=== PATIENT | male | born 1995 | race Caucasian/White ===

== ENCOUNTER 2025-08-22 11:16 | Emergency (ER) | payer OTHER, SELFPAY ==
[2025-08-22 11:23] VITALS: BP 143/88; PULSE 88; RESP 17; TEMP 36.2; O2SAT 98; BMI 33.0
[2025-08-22 13:30] VITALS: BP 134/74; PULSE 74; RESP 20; O2SAT 98
--- NOTE | 2025-08-22 13:35 | ED.URI ---
HPI - URI/Sore Throat General Chief Complaint: Upper Respiratory Symptoms Stated Complaint: Numbness in neck/ringing ears/headache Time Seen by Provider: 08/22/25 12:30 Source: patient Mode of arrival: Ambulatory History of Present Illness HPI Narrative: Patient is a 30-year-old male presenting to day with ears clogged ringing in his ear neck pain and some numbness down his left hand. He reports that he has been sick for about a month or so he has had 2 [id number] infections he has had pretty significant nasal congestion. No fever no chills. He recently traveled back from [place] and does not feel like his ears have quite pop. He feels like he has nasal congestion that has gotten much better. No significant shortness of breath or chest pain. He occasionally has palpitations but that is not new he does not feel like the palpitations have gotten any worse. No abdominal pain nausea or vomiting. Related Data Allergies Allergy/AdvReac Type Severity Reaction Status Date / Time No Known Drug Allergies Allergy Verified 08/22/25 11:23 Patient History Social History Smoking Status: Current every day smoker Smoking Status: Current every day smoker tobacco type: cigarettes Exam Initial Vital Signs Initial Vital Signs: Vital Signs Temperature 97.1 F L 08/22/25 11:23 Pulse Rate 88 08/22/25 11:23 Respiratory Rate 17 08/22/25 11:23 Blood Pressure 143/88 H 08/22/25 11:23 Pulse Oximetry 98 08/22/25 11:23 Oxygen Delivery Method Room Air 08/22/25 11:23 GENERAL: Well-appearing, well-nourished and in no acute distress. HEENT: Head atraumatic,EOMI, no vertebral tenderness no step-off mild paraspinal muscle tenderness EARS: Tympanic membranes visualized, no erythema or bulging, no hemotympanum CARDIOVASCULAR: Regular rate and rhythm without murmurs, rubs or gallops. RESPIRATORY: Breath sounds equal bilaterally, no wheezes rales or rhonchi. ABDOMEN: Soft, nontender. Normoactive bowel sounds all 4 quadrants. No guarding or rebound. EXTREMITIES: Normal range of motion, no clubbing or edema. 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 Cranial nerves II through XII grossly intact. SKIN: Warm, dry, no laceration, no petechiae, no rashes or lesions. Course Vital Signs Vital signs: Vital Signs - 8 hr 08/22/25 11:23 08/22/25 13:30 Temperature 97.1 F L Pulse Rate 88 74 Respiratory Rate 17 20 Blood Pressure 143/88 H 134/74 Pulse Oximetry 98 98 Oxygen Delivery Method Room Air Room Air MDM - URI/Sore Throat MDM Narrative Medical decision making narrative: Patient is a healthy 30-year-old male presenting today with ringing ears. There is no evidence of otitis media vitals are stable heart rate sounds regular breath sounds are clear. No need for any further workup. Recommend supportive care. His strength is equal he has no injury and it is not he has full range of motion no meningeal signs no fever. Discharge Plan Departure Patient Disposition: Home Clinical Impression: Acute dysfunction of both eustachian tubes Instructions: DI for Eustachian Tube Dysfunction-Adult Activity Restrictions/Additional Instructions: *You have been diagnosed with Eustachian tube dysfunction *What to do: At this time try nasal saline drops Tylenol Motrin as needed for antibiotics. I hope that you start feeling better soon if things are getting worsened by all means return to the emergency department *Continue to take medications as directed *Follow up with your primary care provider in 2-3 days or call [phone] *Return to ER if you should have increasing weakness numbness tingling ear pain fever or any new, worsening or concerning symptoms Referrals: ProviderOscar [Primary Care Provider, Family Practice] Stand Alone Forms: Patient Portal/API
== END 2025-08-22 14:14 | disposition home or self-care (01) ==
PROVIDERS: Emergency Provider Emergency Medicine
DX: H69.93 Unspecified Eustachian tube disorder, bilateral (principal); M54.2 Cervicalgia; F17.210 Nicotine dependence, cigarettes, uncomplicated; R20.0 Anesthesia of skin
CPT/HCPCS: 99281